=== PATIENT | female | born 1970 | race Caucasian/White ===

== ENCOUNTER 2023-06-10 20:48 | Day surgery (SDC) | payer OTHER, SELFPAY ==
[2023-06-10 20:51] VITALS: BP 130/81; PULSE 80; RESP 18; TEMP 35.9; O2SAT 96
--- NOTE | 2023-06-10 21:07 | ED.GENADULT ---
HPI - General Adult General Time Seen by Provider: 21:07 Date Seen: 06/10/23 Chief complaint: Abdominal Pain Stated complaint: back pain, stomach pain, chills, Time Seen by Provider: 06/10/23 21:07 Source: patient and family Mode of arrival: ambulatory Limitations: no limitations History of Present Illness HPI narrative: Marni is a very pleasant 52-year-old female previously healthy who presents to the emergency room for evaluation regarding right lower quadrant pain. Patient notes that yesterday she had the onset of some discomfort in her right lower quadrant. She states that tonight it became much worse and is radiating into her back. She notes that she did have a kidney stone many years ago and is experiencing some urgency but no dysuria. She began vomiting this evening as well. She initially thought yesterday she may be constipated but that has not been the case. She feels warm but has not been running a fever however she has felt chilled. She notes when the pain is at its worse she is preferring to not move. She has had an appendicitis with appendectomy in the past. She retains uterus and ovaries. No history of colitis or other GI issues. Movement increases her discomfort. Related Data Home Medications Medication Instructions Recorded Confirmed No Known Home Medications 06/10/23 06/10/23 Allergies Allergy/AdvReac Type Severity Reaction Status Date / Time No Known Drug Allergies Allergy Verified 06/10/23 21:51 Review of Systems Status of ROS: Reports: 10 or more systems reviewed and unremarkable except as noted in History and below Const: Reports: chills; Denies: fever ENMT: Denies: difficulty swallowing Cardio: Denies: chest pain or shortness of breath with exertion Resp: Denies: shortness of breath or cough GI: Reports: abdominal pain, nausea and vomiting; Denies: diarrhea, constipation or difficulty swallowing : Reports: urinary frequency and urinary urgency; Denies: painful urination Musculo: Reports: back pain Neuro: Denies: headache or weakness in extremities Endo: Denies: excessive urination [facility] PFS Surgical History (Updated 06/11/23 @ 00:47 by Sina Baxter MD) S/P tubal ligation ?Z98.51 - Tubal ligation status (ICD-10) S/P appendectomy ?Z90.49 - Acquired absence of other specified parts of digestive tract (ICD-10) Social History Smoking Status: Never smoker Do you use any of these nicotine containing products: None Non-prescribed substance use: denies use Exam Narrative: Exam Narrative: Alert and oriented. Holding the emesis bag. Eyes are clear. Lips are moist. Heart with a regular rate and rhythm. Lungs are clear. No CVA tenderness to percussion. Abdomen shows pain that is exquisite right lower quadrant. Mass is palpated that appears to be fixed. Exquisite pain at this time. Patient has discomfort when attempting to lie flat. Prefers to have knees close to chest. Moving all extremities. Const: Vital Signs, click to edit/add: Vital Signs - 24 hr 06/10/23 20:51 Temperature 96.6 F L Pulse Rate [Left P ulse Oximeter] 80 Respiratory Rate 18 Blood Pressure [Ri ght Upper Arm] 130/81 Pulse Oximetry 96 Oxygen Delivery Me thod Room Air Documenting provider has reviewed patient's vital signs: yes Course Course ED Course: At this time differential diagnosis includes but is not limited to nephrolithiasis, ureteral colic, pyelonephritis, colitis, hernia. Will place IV give 1 L of normal saline, Toradol 15 mg, morphine 4 mg and Zofran 4 mg. Will check CBC, comprehensive panel, CRP, urinalysis, lactate as well as abdominal CT with contrast. Reevaluation(s) Time of Reevaluation #1: 22:10 Reevaluation #1: Patient did not feel that morphine Toradol Zofran helped her pain. Examination shows a mass in the right lower quadrant. CT results are called to me from radiologist that confirms unlikely incarceration of the colon in the right inguinal canal. Lactate and white count are normal. Will give Dilaudid 0.5 mg IV an attempt to reduction. Reevaluation #2: Reduction attempts seems to have failed although the mass is smaller in volume at this time. I did speak with our surgeon regional engagement consultant Dr. Baxter who will review the CT. Patient is being kept NPO at this time. Reevaluation #3: I assisted our surgeon with mild sedation for patient in attempt to reduce this inguinal hernia. Ketamine 20 mg x 2 used. Appearance of this area is improved and a repeat CT has been ordered. Unfortunately repeat CT continues to show inguinal hernia. Patient will be admitted to same-day surgery. Vital Signs Vital signs: Initial Vital Signs Temperature 96.6 F L 06/10/23 20:51 Temperature Source Temporal Artery Scan 06/10/23 20:51 Pulse Rate 80 06/10/23 20:51 Pulse Rhythm Regular 06/10/23 20:51 Respiratory Rate 18 06/10/23 20:51 Blood Pressure 130/81 06/10/23 20:51 Blood Pressure Mean 97 06/10/23 20:51 Blood Pressure Position Sitting 06/10/23 20:51 Pulse Oximetry 96 06/10/23 20:51 Oxygen Delivery Method Room Air 06/10/23 20:51 Vital Signs Temperature 96.6 F L 06/10/23 20:51 Pulse Rate 80 06/10/23 20:51 Respiratory Rate 18 06/10/23 20:51 Blood Pressure 130/81 06/10/23 20:51 Pulse Oximetry 96 06/10/23 20:51 Oxygen Delivery Method Room Air 06/10/23 20:51 Temperature 96.6 F L 06/10/23 20:51 Pulse Rate 80 06/10/23 20:51 Respiratory Rate 18 06/10/23 20:51 Blood Pressure 130/81 06/10/23 20:51 Pulse Oximetry 96 06/10/23 20:51 Oxygen Delivery Method Room Air 06/10/23 20:51 Medications Administered Medications: Generic Name Dose Route Start Last Admin Trade Name Freq PRN Reason Stop Dose Admin Hydromorphone HCl 0.5 mg 06/11/23 01:13 06/11/23 01:18 Hydromorphone 0.5 Mg/0.5 Ml Inj IVP 06/11/23 01:14 0.5 mg ONCE ONE Administration Lorazepam 0.5 mg 06/11/23 01:12 06/11/23 00:28 Lorazepam 2 Mg/Ml Inj IVP 06/11/23 01:13 0.5 mg ONCE ONE Administration Discontinued Medications Generic Name Dose Route Start Last Admin Trade Name Freq PRN Reason Stop Dose Admin Hydromorphone HCl 0.5 mg 06/10/23 22:10 06/10/23 22:15 Hydromorphone 0.5 Mg/0.5 Ml Inj IVP 06/10/23 22:11 0.5 mg ONCE ONE Administration Sodium Chloride 1,000 mls @ 1,000 mls/hr 06/10/23 21:17 06/11/23 00:14 0.9 % Sodium Chloride 1000 Ml IV 06/10/23 22:16 Infused .Q1H KOURTNEY Infusion Ketamine HCl 100 mg 06/11/23 00:06 06/11/23 00:35 Ketamine Hcl 100 Mg/Ml Inj IVP 06/11/23 00:07 40 mg ONCE ONE Administration Ketorolac Tromethamine 15 mg 06/10/23 21:16 06/10/23 21:35 Ketorolac 15 Mg/Ml Inj IVP 06/10/23 21:17 15 mg ONCE ONE Administration Lorazepam 0.5 mg 06/10/23 22:45 06/10/23 22:59 Lorazepam 2 Mg/Ml Inj IVP 06/10/23 22:46 0.5 mg ONCE ONE Administration Morphine Sulfate 4 mg 06/10/23 21:16 06/10/23 21:35 Morphine 4 Mg/Ml Inj IVP 06/10/23 21:17 4 mg ONCE ONE Administration Ondansetron HCl 4 mg 06/10/23 21:16 06/10/23 21:35 Ondansetron 2 Mg/Ml Inj IVP 06/10/23 21:17 4 mg ONCE ONE Administration Medical Decision Making MDM Narrative Medical decision making narrative: 1. Inguinal hernia-unsuccessful reduction of hernia with pain medications, full Trendelenburg positioning and sedation. Pain medications included Toradol 15 mg, morphine 4 mg, Dilaudid 0.5 mg, Ativan 0.5 mg and ketamine 20 mg x 2. Patient will be going to same-day surgery under the care of Dr. Baxter. Lactate is within normal limits. 2. Abdominal pain-see above. 3. Disposition -admit to same-day surgery. Patient is continuing to experience pain. Will give additional Dilaudid 0.5 mg IV. Medical Records Medical records reviewed: Yes I reviewed the patient's medical records Lab Data Lab results reviewed: Yes I reviewed the patient's lab results Lab results narrative: Lactate normal at this time Labs: Lab Results 06/10/23 06/10/23 Range/Units 21:26 22:01 WBC 8.45 (4.50-11.00) K/uL RBC 3.95 L (4.00-5.20) m/uL Hgb 12.3 (12.0-16.0) gm/dL Hct 36.5 (33.0-51.0) % MCV 92 (80-100) fL MCH 31 (26-34) pg MCHC 34 (32-36) gm/dL RDW Coeff of [place] 12.4 (11.5-15.5) % Plt Count 329 (140-440) K/uL Neut % (Auto) 66.5 (42.0-72.0) % Lymph % (Auto) 22.2 (20-44) % [place] % (Auto) 6.2 (0.0-11.0) % Eos % (Auto) 4.9 (0.0-7.0) % Baso % (Auto) 0.2 (0.0-3.0) % Neut # (Auto) 5.62 (1.7-7.0) K/uL Lymph # (Auto) 1.88 (0.90-2.90) K/uL [place] # (Auto) 0.50 (0.00-0.90) K/UL Eos # (Auto) 0.41 (0.00-0.50) K/uL Baso # (Auto) 0.02 (0.00-0.30) K/uL Abs Immat Gran (auto) 0.00 (0.00-0.30) K/uL Imm/Tot Granulo (auto) 0.0 % Sodium 137 (135-149) mmol/L Potassium 3.8 (3.6-5.1) mmol/L Chloride 103 (96-114) mmol/L Carbon Dioxide 25 (20-32) mmol/L Anion Gap 9 (7-15) mEq/L BUN 18 (7-30) mg/dL Creatinine 0.6 (0.5-1.5) mg/dL Estimated GFR 109 ml/min Glucose 131 H (60-115) mg/dL Lactate 0.7 (0.5-1.9) mmol/L Calcium 9.7 (8.4-10.6) mg/dL Total Bilirubin 0.3 (0.1-1.5) mg/dL AST 30 (12-35) U/L ALT 20 (4-35) U/L Alkaline Phosphatase 83 (40-150) U/L C-Reactive Protein < 0.5 L (0.5-1.0) mg/dL Total Protein 7.9 (6.0-8.3) g/dL Albumin 4.3 (3.3-5.0) g/dL Urine Color Yellow (Yellow) Urine Appearance Clear (Clear) Urine pH 7.5 (5.0-8.5) Ur Specific [place] 1.015 (1.000-1.030) Urine Protein Negative (Negative) Urine Glucose (UA) Negative (Negative) Urine Ketones Negative (Negative) Urine Blood Trace-lysed A (Negative) Urine Nitrite Negative (Negative) Urine Bilirubin Negative (Negative) Urine Urobilinogen 0.2 (0.2-1.0) Ur Leukocyte Esterase Negative (Negative) Urine RBC 2-5 A (0-2) Urine WBC 0-2 (0-5) Ur Squamous Epith Cells None (None-Few) Amorphous Sediment Moderate A (None) Urine Bacteria None (None) Imaging Data CT scan - abdomen: Attestation: I have reviewed the pertinent imaging results. Radiologist's impression: ower chest: Scattered atelectasis. Liver: Unremarkable. Normal in size and attenuation. No suspicious masses. Gallbladder and bile ducts: Unremarkable. No stones or inflammation. No biliary dilatation. Pancreas: Unremarkable. No mass or inflammation. Spleen: Unremarkable. Normal in size. No masses. Adrenal glands: Unremarkable. No nodules. Kidneys: Unremarkable. No suspicious masses, stones, or hydronephrosis. GI tract: Colonic diverticulosis. Appendectomy. Vasculature: Abdominal aorta is normal in caliber. Mesenteric arteries are patent. Lymph nodes: No lymphadenopathy. Peritoneum/Abdominal Wall: Focal right inguinal hernia containing a short segment of dilated sigmoid colon. No sign of mass or infiltration. No free air or significant free fluid. Pelvis: Mildly distended bladder with circumferential wall thickening. Bones: Unremarkable for age. IMPRESSION: Focal right inguinal hernia containing a short segment of dilated sigmoid colon. Closed loop obstruction not excluded. Recommend correlation with physical examination for incarceration and consider surgical consultation. Moderate colonic stool burden. Colonic diverticulosis without diverticulitis. CT- Other: Attestation: I have reviewed the pertinent imaging results. My impression: Repeat CT clearly shows continued hernia. This was reviewed in conjunction with our surgeon. ECG Data Attestation: I personally reviewed and interpreted this ECG as follows: Interpretation: EKG by my read shows sinus rhythm at a rate of 92. I do not note any acute ST or T-wave changes. QT and ND intervals within normal limits. Critical Care Time Critical Care Time Critical Care Time: Yes Attestation: The patient required my highest level preparedness to intervene emergently and I personally spent this critical care time directly and personally managing the patient. This critical care time included: Obtaining a history; Examining the patient; Pulse oximetry; Ordering and reviewing of studies; Arranging urgent treatment with development of a management plan; Evaluation of patients response to treatment; Frequent reassessment discussions with other providers. This critical care time was performed to assess and manage the high probability of imminent life-threatening deterioration that could result in multiorgan failure. It was exclusive of separate billable procedures and treating other patients and teaching time. Total Critical Care Time in Minutes: 45 Discharge Plan Discharge Clinical Impression: Right inguinal hernia Patient Disposition: XFER to OR Condition: Critical
--- NOTE | 2023-06-10 21:17 | CRLHL7_ITS ---
For Patients: As a result of the Century Cures Act, medical imaging exams and procedure reports are released immediately into your electronic medical record. You may view this report before your referring provider. If you have questions, please contact your health care provider. INDICATION: Right lower quadrant pain. TECHNIQUE: CT abdomen and pelvis acquired with 77 cc Isovue 370 IV contrast. COMPARISON: None. FINDINGS: Lower chest: Scattered atelectasis. Liver: Unremarkable. Normal in size and attenuation. No suspicious masses. Gallbladder and bile ducts: Unremarkable. No stones or inflammation. No biliary dilatation. Pancreas: Unremarkable. No mass or inflammation. Spleen: Unremarkable. Normal in size. No masses. Adrenal glands: Unremarkable. No nodules. Kidneys: Unremarkable. No suspicious masses, stones, or hydronephrosis. GI tract: Colonic diverticulosis. Appendectomy. Vasculature: Abdominal aorta is normal in caliber. Mesenteric arteries are patent. Lymph nodes: No lymphadenopathy. Peritoneum/Abdominal Wall: Focal right inguinal hernia containing a short segment of dilated sigmoid colon. No sign of mass or infiltration. No free air or significant free fluid. Pelvis: Mildly distended bladder with circumferential wall thickening. Bones: Unremarkable for age. IMPRESSION: Focal right inguinal hernia containing a short segment of dilated sigmoid colon. Closed loop obstruction not excluded. Recommend correlation with physical examination for incarceration and consider surgical consultation. Moderate colonic stool burden. Colonic diverticulosis without diverticulitis. Case discussed with Liliana Cummins at 10:05 p.m. on 06/10/2023. Please note that all CT scans at this facility use dose modulation, iterative reconstruction, and/or weight-based dosing when appropriate to reduce radiation dose to as low as reasonably achievable. Dictated by William Barajas MD @ 06/10/2023 10:11:07 PM (Electronically Signed)
[2023-06-10] MEDS: KETOROLAC 15 MG/ML inj IVP (21:35)
[2023-06-10] MEDS: 0.9 % SODIUM CHLORIDE 1000 ml 1,000 ML IV (21:35)
[2023-06-10] MEDS: MORPHINE 4 MG/ML INJ IVP (21:35)
[2023-06-10] MEDS: ONDANSETRON 2 MG/ML inj 4 MG IVP (21:35)
[2023-06-10 21:36] LABS: Lactate* 0.7 mmol/L (0.5-1.9)
[2023-06-10 21:39] LABS: Basophils Absolute Auto 0.02 K/uL (0.00-0.30); Basophils Percent Auto 0.2 % (0.0-3.0); Eosinophils Absolute Auto 0.41 K/uL (0.00-0.50); Eosinophils Percent Auto 4.9 % (0.0-7.0); Hematocrit 36.5 % (33.0-51.0); Hemoglobin* 12.3 gm/dL (12.0-16.0); Lymphocytes Absolute Auto 1.88 K/uL (0.90-2.90); Lymphocytes Percent Auto 22.2 % (20-44); Mean Corpuscular HGB Conc 34 gm/dL (32-36); Mean Corpuscular Hemoglobin 31 pg (26-34); Mean Corpuscular Volume 92 fL (80-100); Monocytes Percent Auto 6.2 % (0.0-11.0); Neutrophils Absolute Auto 5.62 K/uL (1.7-7.0); Neutrophils Percent Auto 66.5 % (42.0-72.0); Platelet Count* 329 K/uL (140-440); RDW Coefficient of Variation % 12.4 % (11.5-15.5); Red Blood Count 3.95 m/uL (4.00-5.20); White Blood Count* 8.45 K/uL (4.50-11.00)
[2023-06-10 21:43] LABS: Slide Review Reflex No
[2023-06-10 21:53] LABS: Albumin* 4.3 g/dL (3.3-5.0); Chloride* 103 mmol/L (96-114); Sodium* 137 mmol/L (135-149)
[2023-06-10 21:54] LABS: Potassium* 3.8 mmol/L (3.6-5.1)
[2023-06-10 21:56] LABS: Bilirubin Total* 0.3 mg/dL (0.1-1.5); Creatinine* 0.6 mg/dL (0.5-1.5); Estimated Glomerular Filt Rate 109 ml/min
[2023-06-10 21:57] LABS: Alanine Aminotransferase* 20 U/L (4-35); Alkaline Phosphatase* 83 U/L (40-150); Anion Gap 9 mEq/L (7-15); Aspartate Amino Transferase* 30 U/L (12-35); Blood Urea Nitrogen* 18 mg/dL (7-30); Calcium* 9.7 mg/dL (8.4-10.6); Carbon Dioxide* 25 mmol/L (20-32); Glucose* 131 mg/dL (60-115); Total Protein* 7.9 g/dL (6.0-8.3)
[2023-06-10 22:02] LABS: C Reactive Protein* < 0.5 mg/dL (0.5-1.0)
[2023-06-10 22:08] LABS: Appearance Urine Clear (Clear); Bilirubin Urine Negative (Negative); Blood Urine Trace-lysed (Negative); Color Urine Yellow (Yellow); Glucose Urine Negative (Negative); Ketones Urine Negative (Negative); Leukocyte Esterase Urine Negative (Negative); Nitrite Urine Negative (Negative); Protein Urine Negative (Negative); Specific Gravity Urine 1.015 (1.000-1.030); Urobilinogen Urine 0.2 (0.2-1.0); pH Urine 7.5 (5.0-8.5)
[2023-06-10] MEDS: HYDROmorphone 0.5 mg/0.5 ml inj IVP (22:15)
[2023-06-10 22:35] LABS: WBC Urine 0-2 (0-5)
[2023-06-10 22:36] LABS: Amorphous Sediment Urine Moderate
[2023-06-10] MEDS: LORazepam 2 MG/ML inj 0.5 MG IVP (22:59)
[2023-06-11] VITALS (19 sets, daily range): BP systolic 95–116; BP diastolic 52–69; PULSE 74–110; RESP 14–18; TEMP 35.8–36.9; O2SAT 92–98
--- NOTE | 2023-06-11 00:27 | CRLHL7_ITS ---
For Patients: As a result of the Century Cures Act, medical imaging exams and procedure reports are released immediately into your electronic medical record. You may view this report before your referring provider. If you have questions, please contact your health care provider. INDICATION: Right inguinal hernia status post reduction, follow-up evaluation. TECHNIQUE: Multiplanar CT examination of the abdomen and pelvis were acquired without the use of intravenous contrast. COMPARISON: CT abdomen pelvis 06/10/2023. FINDINGS: Lower chest: Linear bandlike opacifications of the lung bases likely due to subsegmental atelectasis and/or scarring. No focal consolidation. Normal heart size. No pleural effusions or pneumothorax. Liver: Normal. Gallbladder/Biliary: Normal. No biliary ductal dilitation. Pancreas: Normal. Spleen: Normal. Adrenal Glands: Normal. Kidneys: Contrast material within the collecting system is from a prior examination. Otherwise, the kidneys appear unremarkable. No obstructive calculi or hydronephrosis. Ureters: Unremarkable. Bladder: Unremarkable. Bowel: No obstruction or bowel wall thickening. Appendectomy. Colonic diverticulosis. No pneumatosis intestinalis or Pelvic organs: Unremarkable. Peritoneum: No free fluid or pneumoperitoneum. Vessels: No aneurysms. No significant atherosclerotic disease. Lymph Nodes: No lymphadenopathy. Abdominal Wall/Soft Tissues: Redemonstrated right inguinal hernia containing a short segment of signal colon, grossly unchanged from the prior examination. Bones: Unremarkable. IMPRESSION: Stable right inguinal hernia containing a short segment of sigmoid colon. No pneumatosis intestinalis or pneumoperitoneum. Please note that all CT scans at this facility use dose modulation, iterative reconstruction, and/or weight-based dosing when appropriate to reduce radiation dose to as low as reasonably achievable. Dictated by Bryant Vela MD @ 06/11/2023 1:37:58 AM (Electronically Signed)
[2023-06-11] MEDS: LORazepam 2 MG/ML inj 0.5 MG IVP (00:28)
[2023-06-11] MEDS: KETAMINE HCL 100 MG/ML inj IVP (00:35)
--- NOTE | 2023-06-11 00:42 | P.GSCN_ITS ---
History of Present Illness Consult details Date Seen: 06/11/23 Consult date: 06/11/23 Narrative: 52-year-old female presented to emergency room with right-sided inguinal bulge and pain. Patient states that she initially noticed the bulge on Wednesday. She states that initially it was just sore but she was getting more uncomfortable and continued to have pain. She went to work today. She started to vomit today and decided to come to the emergency room. Patient was not aware that she had an inguinal hernia. In the emergency room she was found to have a normal WBC. Her lactate was normal. An abdominal CT was obtained that showed a right inguinal hernia with incarcerated cecum. The terminal ileum or other small intestine extending into the cecum was not dilated. Review of Systems Narrative: General: no fevers HENT: no problems swallowing CV: no shortness of breath Resp: no cough GI: No nausea, vomiting, abdominal pain : no dysuria, no increased urinary frequency, no hematuria Skin: no new rashes Musculoskeletal: no back pain Neuro: no muscle weakness Psyche: no depression, no anxiety PFSH PFSH Surgical History (Updated 06/11/23 @ 00:47 by Sina Baxter MD) S/P tubal ligation ?Z98.51 - Tubal ligation status (ICD-10) S/P appendectomy ?Z90.49 - Acquired absence of other specified parts of digestive tract (ICD- 10) Social History Smoking Status: Never smoker Do you use any of these nicotine containing products: None Non-prescribed substance use: denies use Meds Home Medications and Allergies Home Medications Medication Instructions Recorded Confirmed Type No Known Home Medications 06/10/23 06/10/23 History Allergies Allergy/AdvReac Type Severity Reaction Status Date / Time No Known Drug Allergies Allergy Verified 06/10/23 21:51 Exam Narrative: Exam Narrative: General appearance: Alert, cooperative, and in no distress Pulmonary: Chest symmetric, lungs clear bilaterally Cardiovascular Heart: Regular rate and rhythm, S1, S2, no murmurs/rubs/gallops Gastrointestinal Abdominal: soft, not distended, abdomen is not tender to palpation. There is tenderness to palpation near the right inguinal canal. There is a small palpable bulge and this is s/p reduction by the ER physician. Skin: Normal skin color, texture, and turgor. No rashes or lesions. Psychiatric: Alert, cooperative, normal affect. Const: Vital Signs, click to edit/add: Vital Signs - 24 hr 06/10/23 20:51 Temperature 96.6 F L Pulse Rate [Left P ulse Oximeter] 80 Respiratory Rate 18 Blood Pressure [Ri ght Upper Arm] 130/81 Pulse Oximetry 96 Oxygen Delivery Me thod Room Air Results Labs Labs: Abnormal lab results 06/10/23 06/10/23 Range/Units 21:26 22:01 RBC 3.95 L (4.00-5.20) m/uL Glucose 131 H (60-115) mg/dL C-Reactive Protein < 0.5 L (0.5-1.0) mg/dL Urine Blood Trace-lysed A (Negative) Urine RBC 2-5 A (0-2) Amorphous Sediment Moderate A (None) Diabetes panel 06/10/23 Range/Units 21:26 Sodium 137 (135-149) mmol/L Potassium 3.8 (3.6-5.1) mmol/L Chloride 103 (96-114) mmol/L Carbon Dioxide 25 (20-32) mmol/L BUN 18 (7-30) mg/dL Creatinine 0.6 (0.5-1.5) mg/dL Glucose 131 H (60-115) mg/dL Calcium 9.7 (8.4-10.6) mg/dL AST 30 (12-35) U/L ALT 20 (4-35) U/L Alkaline Phosphatase 83 (40-150) U/L Total Protein 7.9 (6.0-8.3) g/dL Albumin 4.3 (3.3-5.0) g/dL Calcium panel 06/10/23 Range/Units 21:26 Calcium 9.7 (8.4-10.6) mg/dL Albumin 4.3 (3.3-5.0) g/dL Pituitary panel 06/10/23 Range/Units 21:26 Sodium 137 (135-149) mmol/L Potassium 3.8 (3.6-5.1) mmol/L Chloride 103 (96-114) mmol/L Carbon Dioxide 25 (20-32) mmol/L BUN 18 (7-30) mg/dL Creatinine 0.6 (0.5-1.5) mg/dL Glucose 131 H (60-115) mg/dL Calcium 9.7 (8.4-10.6) mg/dL Adrenal panel 06/10/23 Range/Units 21:26 Sodium 137 (135-149) mmol/L Potassium 3.8 (3.6-5.1) mmol/L Chloride 103 (96-114) mmol/L Carbon Dioxide 25 (20-32) mmol/L BUN 18 (7-30) mg/dL Creatinine 0.6 (0.5-1.5) mg/dL Glucose 131 H (60-115) mg/dL Calcium 9.7 (8.4-10.6) mg/dL Total Bilirubin 0.3 (0.1-1.5) mg/dL AST 30 (12-35) U/L ALT 20 (4-35) U/L Alkaline Phosphatase 83 (40-150) U/L Total Protein 7.9 (6.0-8.3) g/dL Albumin 4.3 (3.3-5.0) g/dL All other labs normal. Assessment and Plan Assessment and plan (1) Right inguinal hernia: Status: Acute Plan 52-year-old female presents with incarcerated right inguinal hernia. Patient's hernia was partially reduced by the ER physician. We then administered ketamine and attempted to reduce the hernia further. A thickening is still palpated in the right inguinal canal. Repeat abdominal CT scan without contrast showed that the cecum is still incarcerated in the inguinal canal. Given patient's clinical history and inability to reduce his hernia, I recommended to proceed with surgery. Will plan to do an exploratory laparoscopy and attempt to reduce the hernia under direct visualization with patient under anesthesia. I discussed with the patient that we may need to perform a laparotomy if the cecum is compromised and possible ileocecectomy if cecum a small intestines compromise. We also discussed repairing her right inguinal hernia without mesh through an inguinal incision. The procedures were discussed in detail. The risks associated procedures including infection, bleeding, injury to intra-abdominal organs, and hernia recurrence were all discussed with the patient, and she agreed to proceed.
[2023-06-11] MEDS: HYDROmorphone 0.5 mg/0.5 ml inj IVP (01:18)
[2023-06-11 01:49] LABS: Ur HCG Qualitative* Negative (Negative)
[2023-06-11] MEDS: LACTATED RINGERS 1000 ML 1,000 ML 125 ML IV ×2 (02:18→03:41)
[2023-06-11] MEDS: PIPERACILLIN/TAZOBACTAM 3.375 GM INJ IVPB (02:25)
[2023-06-11] MEDS: ACETAMINOPHEN INJ 1,000 MG/100 ML VIAL 400 MG IVPB (03:06)
[2023-06-11] MEDS: BUPIVACAINE 0.25% 30 ML INJECTION (03:30)
--- NOTE | 2023-06-11 04:01 | P.GSOP_ITS ---
Operative Note Pre-op diagnosis: 1. Incarcerated right inguinal hernia. Post-op diagnosis: 1. Incarcerated right inguinal hernia containing sigmoid colon. Type of Procedure: 1. Exploratory laparoscopy. 2. Open right inguinal hernia repair with mesh. Indications: 52-year-old female presented to emergency room with right-sided abdominal pain and right inguinal bulge that initially was noticed 2 days ago. Patient felt soreness initially but then the pain was getting progressively worse. Today, patient started vomiting. She did not pass gas today. She presented to emergency room. In the emergency room she was found to have normal WBC and lactate. An abdominal CT was obtained that showed a right inguinal hernia containing segment of large intestine. Two separate reductions were attempted in the emergency room including attempted reduction with Ketamine. Patient's bulge was smaller but was still persistent as was evident on the repeat abdominal CT. Given patient's continued pain and her CT findings, exploratory laparoscopy and open right inguinal hernia repair were recommended. The procedure was discussed in detail. The risks associated procedure including infection, bleeding, injury to and upper abdominal organs, and possible exploratory laparotomy were all discussed with the patient, and she agreed to proceed. Procedure Description: After discussing the risks and benefits of the procedure, the patient signed informed consent.? The operative site was marked and the patient was brought to the operating room and placed on the operating table in supine position.? Care was taken to pad the patient's pressure points.?? The patient was then intubated by anesthesia.?? The operative site was then prepped and draped in the usual sterile fashion.? A time-out was then performed. A 5-mm laparoscopy port was placed in the left upper quadrant guided by a 5-mm laparoscope placed into a translucent trochar. Passage through the layers of the abdominal wall was visualized with the laparoscope. A pneumoperitoneum was established. A 30-degree 5-mm laparoscope was advanced into the abdomen. A second 5 mm port was placed in the left lower abdomen under direct visualization. An incarcerated right inguinal hernia was visualized. Large intestine was incarcerated in the hernia. With pressure externally and applying traction to the epiploic fat the hernia was reduced. The incarcerated segment was sigmoid colon. The sigmoid colon was healthy in appearance and only minimal ecchymosis of epiploic fat was noted. At this time the camera was removed and the abdomen was deflated. Proceeded with an open right inguinal hernia repair. Site of the incision was marked with a marking pen and local anesthetic was injected. An oblique incision was made just above and medial to inguinal ligament. Subcutaneous tissue was dissected to external obliques. Superficial subcutaneous vascular branches were clamped, divided and tied with 3-0 Vicryl ties. Small incision was made through the external oblique aponeurosis with scalpel. I then used Metzenbaum scissors to dissect under external obliques and extend my incision. Mosquito clamps were placed on the edges of external oblique exposing the inguinal floor. No definite ileoinguinal nerve was identified. I then identified the hernia sac and the round ligament. I dissected subcutaneous tissues around the round ligament in order to place Kandace drain. Preperitoneal fat was dissected away from the hernia sac and excised with cautery. Hemostasis was achieved with Vicryl sutures. The round ligament was then clamped distally, divided and tied with Vicryl suture. The proximal end of the round ligament was intimately associated with the hernia sac. The [place] drain was removed. The hernia sac and the round ligament together were then tied off with a 2-0 Vicryl suture placed through the hernia sac. The hernia sac was excised with cautery. The cut edge of the hernia sac was then oversewn with a running locking 2-0 Vicryl suture. The hernia sac was from the spermatic cord bluntly and with cautery. This was then pushed into preperitoneal space through the internal ring. Surgical field was examined for bleeding and hemostasis was achieved with cautery and Vicryl ties. The surgical field appeared clean with no fibrinous exudate or purulence. The surgical field was irrigated with normal saline. Since no compromise to the incarcerate sigmoid colon was noted, I elected to repair this hernia with mesh. A Bard mesh onlay with no keyhole was also used for hernia repair. The mesh onlay was sutured in place with interrupted 0-0 Neurolon sutures to the conjoint tendon medially and shelving edge laterally, pubic tubercle inferiorly. [place] drain was removed. External oblique aponeurosis was closed with a running 3-0 Vicryl. Additional local anesthetic was injected into subcutaneous tissues. The incision was again irrigated with normal saline. Jose's fascia and subcutaneous tissue was re-approximated with interrupted Vicryl stitches. The abdomen was insufflated again and the sigmoid colon was examined again from the inside. It appeared healthy. The right inguinal hernia repair appeared intact. There was incidentally found left inguinal hernia with no incarceration. The camera was then removed and abdomen was deflated. All laparoscopic ports were removed as well. Skin of all incisions was closed with 4-0 Monocryl subcuticular stitch. Steri strips and sterile dressing were applied over incision. All counts were correct at the end of the case. Patient tolerated this procedure well and was transferred to PACU in stable condition. Findings: Sigmoid colon incarcerated in the right inguinal hernia. No compromise to the sigmoid colon was noted. Anesthesia: GETA Surgeon: Sina Baxter MD Estimated blood loss (mL): 10 Condition: stable Disposition: PACU Date of procedure: 06/11/23
--- NOTE | 2023-06-11 04:12 | P.ANES_ITS ---
Anesthesia Charges Start Date/Time Anesthesia Start Date: 06/11/23 Anesthesia Start Time: 02:18 Stop Date/Time Anesthesia Stop Date: 06/11/23 Anesthesia Stop Time: 04:01 Summary Emergency: [facility]
[2023-06-11] MEDS: ONDANSETRON 2 MG/ML inj IVP (05:19)
--- NOTE | 2023-06-11 06:55 | PC.NURSE ---
Patient admitted to floor at 0435 from [facility]. Status post op inguinal hernia repair with exploratory lap. Patient denies any pain at this time. 2 lap sites, one in upper right quadrant and one in upper left quadrant, secured with steri strips. Lap sites clean dry and intact, no signs of infection. Right lower groin/abdominal dressing from hernia repair, dressing clean, dry and intact. Nausea reported, zofran administered with moderate relief. Patient tolerating ice chips. Bowel sounds active in right and left upper quadrants, hypoactive in bilateral lower quadrants. Moderate assist x 2 with transfer and ambulation to bathroom, patient voided clear, yellow urine.
[2023-06-11] MEDS: CEFAZOLIN 1 GM in 0.9 % SODIUM CHLORIDE Mini-bag 100 ML IVPB ×2 (09:01→16:13)
--- NOTE | 2023-06-11 09:08 | PM.GSPN ---
Subjective Subjective Date Seen: 06/11/23 Interval history: Patient is doing well postoperatively. She denied nausea but only had ice chips. She complains of abdominal pain at her right inguinal incision. She has not been ambulating yet. Exam Narrative: Exam Narrative: Abdomen is soft, not distended, minimally tender to palpation in the right inguinal incision. All incisions were covered with clean dressings. Const: Vital Signs, click to edit/add: Vital Signs - 24 hr 06/10/23 20:51 06/11/23 04:00 06/11/23 04:05 Temperature 96.6 F L 98.3 F Pulse Rate 108 H 101 H Pulse Rate [Left P ulse Oximeter] 80 Respiratory Rate 18 16 16 Blood Pressure 103/58 L 113/68 Blood Pressure [Le ft Arm] Blood Pressure [Ri ght Upper Arm] 130/81 Pulse Oximetry 96 93 92 Oxygen Delivery Me thod Room Air Room Air Room Air 06/11/23 04:10 06/11/23 04:15 06/11/23 04:20 Temperature 98.4 F Pulse Rate 101 H 109 H 106 H Pulse Rate [Left P ulse Oximeter] Respiratory Rate 16 16 16 Blood Pressure 97/58 L 106/61 104/57 L Blood Pressure [Le ft Arm] Blood Pressure [Ri ght Upper Arm] Pulse Oximetry 96 95 95 Oxygen Delivery Me thod Room Air Room Air Room Air 06/11/23 04:25 06/11/23 04:30 06/11/23 04:35 Temperature 98.4 F 96.4 F L Pulse Rate 105 H 108 H Pulse Rate [Left P ulse Oximeter] 110 H Respiratory Rate 16 16 14 Blood Pressure 108/68 107/61 Blood Pressure [Le ft Arm] 116/60 Blood Pressure [Ri ght Upper Arm] Pulse Oximetry 94 95 95 Oxygen Delivery Me thod Room Air Room Air Room Air 06/11/23 04:45 06/11/23 05:00 06/11/23 05:15 Temperature 97.1 F L 96.8 F L 97.5 F L Pulse Rate Pulse Rate [Left P ulse Oximeter] 104 H 106 H 100 Respiratory Rate 16 16 14 Blood Pressure Blood Pressure [Le ft Arm] 107/69 105/68 104/64 Blood Pressure [Ri ght Upper Arm] Pulse Oximetry 94 94 94 Oxygen Delivery Me thod Room Air Room Air Room Air 06/11/23 05:30 06/11/23 06:00 06/11/23 06:30 Temperature 97.5 F L 97.5 F L Pulse Rate Pulse Rate [Left P ulse Oximeter] 89 89 92 Respiratory Rate 16 16 18 Blood Pressure Blood Pressure [Le ft Arm] 104/62 96/68 104/63 Blood Pressure [Ri ght Upper Arm] Pulse Oximetry 95 98 96 Oxygen Delivery Me thod Room Air Room Air 06/11/23 07:40 Temperature 97.6 F Pulse Rate Pulse Rate [Left P ulse Oximeter] 87 Respiratory Rate 18 Blood Pressure Blood Pressure [Le ft Arm] 100/62 Blood Pressure [Ri ght Upper Arm] Pulse Oximetry 95 Oxygen Delivery Me thod Room Air Progress Note: A&P Assessment and plan (1) S/P right inguinal hernia repair: Status: Acute Plan 52-year-old female s/p exploratory laparoscopy and open right inguinal hernia repair with mesh POD 0. I discussed with the patient intraoperative findings. Will advance her diet as tolerated. If patient is okay tolerating clears and her pain is controlled, she can discharge home around dinner time today. I will keep her on prophylactic antibiotics in the hospital and at discharge.
[2023-06-11] MEDS: ACETAMINOPHEN 325 MG TABLET 650 MG PO (09:29)
[2023-06-11] MEDS: HYDROCODONE-ACETAMIN 5-325 MG 1 TAB PO ×3 (11:38→18:15)
[2023-06-11] MEDS: KETOROLAC 30 MG/ML inj IVP (15:26)
--- NOTE | 2023-06-11 20:30 | PC.NURSE ---
Patient pleasant, alert and oriented. Ambulates and transfers well with stand by assist of one. Reported some nausea after drinking grape juice at breakfast, no other nausea reported. Tolerating regular diet by supper meal. Was given PRN Tylenol?and PRN [place] for c/o pain to right abdomen. Dressings to lower abdomen C,D&I. Both lap sites have a trace amount of dried blood; no active bleeding this shift. Patient discharged at 1842. Patient was wheeled out to ER doors. Patient left hospital in vehicle with significant other.?
== END 2023-06-11 18:42 | disposition home or self-care (01) ==
LOC: ED 21:31 → SS 06-11 01:00 → MEDSURG 06-11 04:55
PROVIDERS: Emergency Provider Family Medicine; PCP Family Medicine; Visit Provider Surgery
PROC: (CPT 49507; principal; 2023-06-11 01:30)
PROC: (CPT 49320; 2023-06-11 01:30)
DX: K40.30 Unilateral inguinal hernia, with obstruction, without gangrene, not specified as recurrent (principal); R10.31 Right lower quadrant pain; Z53.31 Laparoscopic surgical procedure converted to open procedure
CPT/HCPCS: 49507; 00840; 36415; 74176; 74177; 80053; 81001; 81025; 83605; 85025; 86140; 93005; 99140; 99285; 99291; A9270; C1781; J0131; J0330; J0665; J0690; J1100; J1170; J1885; J2060; J2250; J2270; J2371; J2405; J2543; J2704; J3010; J3490; J7030; J7120; Q9967